=== PATIENT | male | born 1985 | race Caucasian/White ===

== ENCOUNTER 2022-03-26 20:04 | Emergency (ER) | payer OTHER ==
[2022-03-26 20:16] VITALS: RESP 18; TEMP 98.7
[2022-03-26] MEDS ORDERED: FLUORESCEIN STRIPS 1 MG STRIP BOTH EYES ONE (20:18)
[2022-03-26] MEDS ORDERED: PROPARACAINE 0.5% OPHTH DROPS 15 ML BTL BOTH EYES STA (20:18)
[2022-03-26] MEDS ORDERED: ERYTHROMYCIN 5 MG/GM OPHTH OINT 3.5 GM TUBE LEFT EYE STA (20:56)
--- NOTE | 2022-03-26 21:00 | ED ---
Eye Problem HPI - General Chief complaint: Eye Problems Stated complaint: [facility] - Eye Injury Time Seen by Provider: 03/26/22 20:18 Source: patient, RN notes reviewed Mode of arrival: ambulatory - History of Present Illness MD chief complaint: eye redness, foreign body Onset/Timin -: hour(s) Onset Description: sudden Location: left eye Place: work If Injury: other (Patient was removing a light fixture when something fell into his left eye. He states he believes it was some sort of dust) Eye Symptoms: burning, redness, foreign body sensation Severity: mild Consistency: constant Associated Symptoms: none Treatments Prior to Arrival: irrigated eye - Related Data Patient Tetanus UTD: Yes Home Medications Medication Instructions Recorded Confirmed Ibuprofen [Motrin] 600 mg PO Q8HR PRN 07/20/15 07/20/15 Tamsulosin HCl [Flomax] 0.4 mg PO DAILY 07/20/15 07/20/15 Previous Rx's Medication Instructions Recorded HYDROcodone/APAP 5-325MG [[place] 5] 1 each PO Q6HR PRN #30 tab 07/20/15 Naproxen [Naprosyn] 500 mg PO Q12HR #60 tab 07/20/15 Allergies Allergy/AdvReac Type Severity Reaction Status Date / Time No Known Allergies Allergy Verified 07/20/15 13:46 Review of Systems ROS Statement: Those systems with pertinent positive or pertinent negative responses have been documented in the HPI. ROS Other: All systems not noted in ROS Statement are negative. Past Medical History Additional Past Medical History / Comment(s): kidney stones History of Any Multi-Drug Resistant Organisms: None Reported Past Surgical History: Appendectomy Past Psychological History: No Psychological Hx Reported Smoking Status: Current every day smoker Past Alcohol Use History: Rare Past Drug Use History: None Reported General Exam - General Exam Comments Initial Comments: Healthy-appearing 36-year-old male in no acute distress General appearance: alert, in no apparent distress Head exam: Present: atraumatic, normocephalic, normal inspection Eye exam: Present: PERRL, EOMI, conjunctival injection (Left), other (Foreign body with rust ring, 5 o'clock position). Absent: scleral icterus, nystagmus, periorbital swelling, periorbital tenderness ENT exam: Present: normal exam Neck exam: Present: normal inspection Respiratory exam: Present: normal lung sounds bilaterally. Absent: respiratory distress, wheezes, rales, rhonchi, stridor Cardiovascular Exam: Present: regular rate, normal rhythm, normal heart sounds. Absent: systolic murmur, diastolic murmur, rubs, gallop, clicks Extremities exam: Present: normal inspection Neurological exam: Present: alert, oriented X3, CN II-XII intact Psychiatric exam: Present: normal affect, normal mood Skin exam: Present: warm, dry, intact, normal color. Absent: rash Course Vital Signs 03/26/22 20:11 Temperature 98.7 F Pulse Rate 90 Respiratory 18 Rate Blood Pressure 184/91 O2 Sat by Pulse 98 Oximetry Procedures - Procedures Initial comment: SLIT-lamp examination: Topical anesthesia with proparacaine. I was sustained. Patient had noted uptake to the 5 o'clock position over the cornea. There was a superficial foreign body with rust ring present. Eyelids were everted. No foreign body noted under the lids. Note that the eye algar brush was not available. Rust ring was removed with the beveled edge of a diffuse needle. Patient tolerated well. No adverse events. Patient did have a remaining corneal abrasion. No residual rust Medical Decision Making - Medical Decision Making Foreign body left eye with rust ring. Foreign body and rust ring was removed completely. No residual material was noted. Erythromycin 1 cm to the affected eye 4 times a day. Patient given follow-up with ophthalmology. He is to call tomorrow morning. Appointment. Patient's visual acuity was normal. Patient has no deficits Patient was told to return to the ER for any signs or symptoms worsen. Told to return immediately if any other problems arise. All questions answered. Treatment plan discussed. Patient in agreement Every effort has been made to ensure accuracy of this dictation. However, due to the limitations of electronic medical records and dictation devices, errors in charting still occur. Filament Welder Dr. Pizarro Disposition Clinical Impression: Foreign body of left cornea Disposition: HOME SELF-CARE Condition: Good Instructions (If sedation given, give patient instructions): Corneal Abrasion (ED), Eye Foreign Body (ED) Additional Instructions: Eye antibiotic ointment, erythromycin, 1 cm to the affected eye every 6 hours. Follow-up with the entry table operator. Call in the morning for follow-up appointment. Return to the ER immediately if any symptoms worsen, new symptoms arise, or any other problems develop. Is patient prescribed a controlled substance at d/c from ED?: No Referrals: Tres Preston MD [STAFF PHYSICIAN] - 03/27/22 8:00 am Time of Disposition: 20:58
[2022-03-26 21:44] VITALS: BP 135/74; PULSE 70
== END 2022-03-26 21:45 | disposition home or self-care (01) ==
LOC: EC 20:04
DX: T15.02XA Foreign body in cornea, left eye, initial encounter (principal); F17.200 Nicotine dependence, unspecified, uncomplicated; W19.XXXA Unspecified fall, initial encounter